=== PATIENT | male | born 1995 | race Caucasian/White ===

== ENCOUNTER 2023-07-06 19:18 | Emergency (ER) | payer OTHER ==
--- NOTE | 2023-07-06 20:14 | ED ---
Skin/Abscess/FB HPI - General Source: patient, RN notes reviewed Mode of arrival: ambulatory Limitations: no limitations - History of Present Illness MD complaint: rash <Jazmín Jordan - Last Filed: 07/06/23 20:12> <Caleb Avila - Last Filed: 07/07/23 00:05> - General Chief complaint: Skin/Abscess/Foreign Body Stated complaint: Sores/rash Time Seen by Provider: 07/06/23 20:10 - History of Present Illness Initial comments: This is a 27 year old male who presents to the emergency department for sores on his body. Patient has been at [facility] for 4 days for heroin use. States that he snorts heroin but does not inject himself. he as a sore to his right arm and on his face. (Jazímn Jordan) This 27-year-old male presents with complaints of sores inside his nose and a rash to his face and left arm. This is been present for 3 days. There is some mild pain associated. There is no fevers or chills. He states that he does feel slightly fatigued. He denies any history of previous similar incidents. He does present from [facility] where he is currently going through rehabilitation for heroin abuse. He apparently does snort heroin normally. No other complaints or modifying factors. (Caleb Avila) - Related Data Previous Rx's Medication Instructions Recorded Mupirocin 2% Oint [Bactroban 2% 1 applic TOPICAL TID #30 gm 07/06/23 Oint] Sulfamethox-Tmp 800-160Mg [Bactrim 1 tab PO Q12HR #20 tab 07/06/23 DS 800-160 mg] Allergies Allergy/AdvReac Type Severity Reaction Status Date / Time No Known Allergies Allergy Verified 07/06/23 19:44 Review of Systems ROS Other: All systems not noted in ROS Statement are negative. <Jazmín Jordan - Last Filed: 07/06/23 20:12> ROS Other: All systems not noted in ROS Statement are negative. <Caleb Avila - Last Filed: 07/07/23 00:05> ROS Statement: Those systems with pertinent positive or pertinent negative responses have been documented in the HPI. Past Medical History Past Medical History: No Reported History History of Any Multi-Drug Resistant Organisms: None Reported Past Surgical History: No Surgical Hx Reported Past Psychological History: ADD/ADHD, Bipolar Smoking Status: Vaper Past Drug Use History: Heroin, Opiates <Jazmín Jordan - Last Filed: 07/06/23 20:12> General Exam Limitations: no limitations <Jazmín Jordan - Last Filed: 07/06/23 20:12> <Caleb Avila J - Last Filed: 07/07/23 00:05> - General Exam Comments Initial Comments: Visual Physical Exam Vital signs reviewed General: Well-appearing, nontoxic, no acute distress. Head: Normocephalic, atraumatic Eyes: PERRLA, EOMI ENT: Airway patent Chest: Nonlabored breathing Skin: No visual rash, normal skin tone Neuro: Alert and oriented 3 Musculoskeletal: No gross abnormalities I performed the QuickNote portion of this chart. Signed Jazmín Jordan PA-C. (Jazmín Jordan) GENERAL: The patient is well nourished and well hydrated. VITAL SIGNS: Heart rate, blood pressure, respiratory rate reviewed as recorded in nurse's notes. EYES: Pupils are round and reactive. Extraocular movements are intact. No conjunctival / lid redness or swelling. ENT: No external evidence of injury, swelling, or ecchymosis. Airway is patent. Throat is clear. There is some irritation and associated erythema in both nares and was outside of the nose. There is one sore in the right eyebrow and some in the upper lip and chin region. NECK: Nontender. No swelling or evidence of injury. No subcutaneous emphysema. Trachea is midline. No thyroid mass. HEART: Regular rate and rhythm. Good peripheral pulses. LUNGS/CHEST: Breath sounds clear and equal bilaterally. No rales, rhonchi, or wheezes. No ecchymosis, subcutaneous emphysema, or tenderness. ABDOMEN: Abdomen soft without tenderness. No palpable masses or organomegaly. No peritoneal signs. No abdominal wall swelling or ecchymosis. EXTREMITIES: No extremity tenderness. Normal muscle tone and function. No thoracolumbar tenderness. NEUROLOGIC: Sensation is grossly intact. Cranial nerve exam reveals face is symmetrical, tongue is midline, speech is clear. SKIN: No abrasions or ecchymosis is noted. No induration or masses noted. There is skin irritation and slight erythema noted in multiple areas to the left arm primarily over the forearm region. Facial rash as noted above. PSYCHIATRIC: Alert and oriented. Appropriate behavior and judgment. (Caleb Avila) Course Vital Signs 07/06/23 07/06/23 19:41 22:56 Temperature 98.6 F 98.2 F Pulse Rate 70 65 Respiratory 18 16 Rate Blood Pressure 134/81 148/78 O2 Sat by Pulse 98 98 Oximetry Medical Decision Making <Caleb Avila - Last Filed: 07/07/23 00:05> - Medical Decision Making The patient was seen and examined. It is felt as though his rash likely is a MRSA infection. Bactroban ointment and Bactrim are prescribed. He is to utilize the Bactroban to his nasal region as well as his skin rash. Close follow-up with primary care recommended. Return parameters are discussed. Was pt. sent in by a medical professional or institution (, PA, PAPER PRODUCTS SUPERVISOR, urgent care, hospital, or [facility]...) When possible be specific @ -[No] Did you speak to anyone other than the patient for history (EMS, parent, family, police, friend...)? What history was obtained from this source @ -[No] Did you review nursing and triage notes (agree or disagree)? Why? @ -[I reviewed and agree with nursing and triage notes] Were old charts reviewed (outside hosp., previous admission, EMS record, old EKG, old radiological studies, urgent care reports/EKG's, [facility] records)? Report findings @ -[No old charts were reviewed] Differential Diagnosis (chest pain, altered mental status, abdominal pain women, abdominal pain men, vaginal bleeding, weakness, fever, dyspnea, syncope, headache, dizziness, GI bleed, back pain, seizure, CVA, palpatations, mental health, musculoskeletal)? @ -[not applicable] EKG interpreted by me (3pts min.). @ -None X-rays interpreted by me (1pt min.). @ -[None done] CT interpreted by me (1pt min.). @ -[None done] U/S interpreted by me (1pt. min.). @ -[None done] What testing was considered but not performed or refused? (CT, X-rays, U/S, labs)? Why? @ -[None] What meds were considered but not given or refused? Why? @ -[None] Did you discuss the management of the patient with other professionals (pro fessionals i.e. , PA, PAPER PRODUCTS SUPERVISOR, lab, RT, psych nurse, social work manager, information technology internship, teacher, protocol officer, disability case manager)? Give summary @ -[No] Was smoking cessation discussed for >3mins.? @ -[No] Was critical care preformed (if so, how long)? @ -[No] Were there social determinants of health that impacted care today? How? (Homelessness, low income, unemployed, alcoholism, drug addiction, transportation, low edu. Level, literacy, decrease access to med. care, alf, rehab)? @ -[No] Was there de-escalation of care discussed even if they declined (Discuss DNR or withdrawal of care, Hospice)? DNR status @ -[No] What co-morbidities impacted this encounter? (DM, HTN, Smoking, COPD, CAD, Cancer, CVA, ARF, Chemo, Hep., AIDS, mental health diagnosis, sleep apnea, morbid obesity)? @ -Heroin abuse Was patient admitted / discharged? Hospital course, mention meds given and route, prescriptions, significant lab abnormalities, going to OR and other pertinent info. @ -Discharged back to [facility] for rehabilitation. Undiagnosed new problem with uncertain prognosis? @ -[No] Drug Therapy requiring intensive monitoring for toxicity (Heparin, Nitro, Insulin, Cardizem)? @ -[No] Were any procedures done? @ -[No] Diagnosis/symptom? @ -Skin infection, cellulitis, likely MRSA infection. Acute, or Chronic, or Acute on Chronic? @ -Acute Uncomplicated (without systemic symptoms) or Complicated (systemic symptoms)? @ -Uncomplicated Side effects of treatment? @ -[No] Exacerbation, Progression, or Severe Exacerbation? @ -[No] Poses a threat to life or bodily function? How? (Chest pain, [place], [place], pneumonia, PE, COPD, DKA, ARF, appy, cholecystitis, CVA, Diverticulitis, Homicidal, Suicidal, threat to staff... and all critical care pts) @ -[No] (Caleb Avila) Disposition <Jazmín Jordan - Last Filed: 07/06/23 20:12> Is patient prescribed a controlled substance at d/c from ED?: No Time of Disposition: 22:07 <Caleb Avila - Last Filed: 07/07/23 00:05> Clinical Impression: Rash, Cellulitis Disposition: HOME SELF-CARE Condition: Good Instructions (If sedation given, give patient instructions): Cellulitis (ED) Prescriptions: Sulfamethox-Tmp 800-160Mg [Bactrim DS 800-160 mg] 1 tab PO Q12HR #20 tab Mupirocin 2% Oint [Bactroban 2% Oint] 1 applic TOPICAL TID #30 gm Referrals: None,Stated [Primary Care Provider] - 1-2 days
[2023-07-06] MEDS ORDERED: SULFAMETHOX-TMP 800-160MG 1 EACH TAB PO STA (22:01)
[2023-07-06] MEDS ORDERED: MUPIROCIN 2% OINT 22 GM TUBE TOPICAL SCH (22:15)
[2023-07-06 23:00] VITALS: BP 148/78; PULSE 65; RESP 16; TEMP 98.2
== END 2023-07-06 22:56 | disposition home or self-care (01) ==
LOC: EC 19:18
DX: L03.114 Cellulitis of left upper limb (principal); L03.211 Cellulitis of face; F17.290 Nicotine dependence, other tobacco product, uncomplicated
CPT/HCPCS: 99283